=== PATIENT | female | born 1955 | race Asian ===

== ENCOUNTER 2018-03-01 08:58 | Day surgery (SDC) | payer BC ==
[~2018-03-01 08:58] MED LIST: CEFAZOLIN 1 GM INJ; CEFAZOLIN 2 GM/50 ML (PMX) 50 ML IVPB; SOD CHLORIDE 0.9% 1,000 ML IV
[2018-03-01 10:22] LABS: ADD MAN DIFF? NO
[2018-03-01 10:26] LABS: BASOPHILS % 0.7 % (0.0-2.0); EOSINOPHILS # 0.7 10^3/ul (0.0-0.5); EOSINOPHILS % 15.6 % (0.0-7.0); HEMATOCRIT 32.1 % (37.0-47.0); HEMOGLOBIN 10.6 g/dl (12.0-16.0); LYMPHOCYTES # 1.1 10^3/ul (0.8-2.9); LYMPHOCYTES % 25.1 % (15.0-51.0); MEAN PLATELET VOLUME 9.5 fl (7.4-10.4); MONOCYTE # 0.7 10^3/ul (0.3-0.9); MONOCYTES % 15.4 % (0.0-11.0); NEUTROPHIL # 1.8 10^3/ul (1.6-7.5); PLATELET COUNT 159 10^3/UL (140-415); RED BLOOD COUNT 3.31 10^6/ul (4.20-5.40); RED CELL DISTRIBUTION WIDTH 15.7 % (11.5-14.5)
[2018-03-01 10:26] LABS: WHITE BLOOD COUNT 4.2 10^3/ul (4.8-10.8)
[2018-03-01 10:38] LABS: HOLD TRANSMISSIONS 1
[2018-03-01 10:43] LABS: INR 0.96; PROTIME 12.9 Sec (11.9-14.9)
[2018-03-01 10:46] LABS: ANION GAP 16 (8-16); CARBON DIOXIDE 26 mmol/L (21-31); CHLORIDE 105 mmol/L (97-110); GLUCOSE 93 mg/dl (70-220)
[2018-03-01 10:48] LABS: PARTIAL THROMBOPLASTIN TIME 24.7 Sec (25.0-35.0)
[2018-03-01 10:51] LABS: BLOOD UREA NITROGEN 17 mg/dl (7-20); CALCIUM 9.2 mg/dl (8.4-10.2); CREATININE 0.57 mg/dl (0.44-1.00); POTASSIUM 4.7 mmol/L (3.5-5.1); SODIUM 142 mmol/L (135-144)
[2018-03-01] MEDS ORDERED: ROCURONIUM 50 MG INJ (11:44)
[2018-03-01] MEDS ORDERED: LIDOCAINE 2% (SDV) 5 ML INJ (11:44)
[2018-03-01] MEDS ORDERED: PROPOFOL 20 ML (11:44)
[2018-03-01] MEDS ORDERED: DEXAMETHASONE 4 MG/ML 1 ML INJ (11:45)
[2018-03-01] MEDS ORDERED: MIDAZOLAM 1 MG/ML 2 ML INJ (11:45)
[2018-03-01] MEDS ORDERED: NEOSTIGMINE 3 MG/3 ML SYRINGE (11:45)
[2018-03-01] MEDS ORDERED: FENTAnyl 50 MCG/ML VIAL (11:45)
[2018-03-01] MEDS ORDERED: ONDANSETRON 4 MG INJ (11:45)
[2018-03-01] MEDS ORDERED: GLYCOPYRROLATE 0.4 MG INJ (11:45)
[2018-03-01] MEDS ORDERED: SUCCINYLCHOLINE CHLORIDE 100 MG/5 ML SYG IV (12:38)
[2018-03-01] MEDS ORDERED: NALOXONE (0.4 MG/ML) INJ IV (13:30)
[2018-03-01] MEDS ORDERED: HYDROmorphONE 1 MG/5 ML IV SYRINGE IV (13:38)
[2018-03-01] MEDS: HYDROmorphONE 0.5 MG/0.5 ML SYG IV (13:50)
[2018-03-01] MEDS ORDERED: HYDROmorphONE 0.5 MG/0.5 ML SYG IV (14:00)
[2018-03-01] MEDS: HYDROCODONE/APAP (5/325) TAB PO (14:44)
== END 2018-03-01 15:05 | disposition home or self-care (01) ==
LOC: SDS 08:58
DX: C34.90 Malignant neoplasm of unspecified part of unspecified bronchus or lung (principal); R59.0 Localized enlarged lymph nodes; D64.9 Anemia, unspecified; R94.31 Abnormal electrocardiogram [ECG] [EKG]
CPT/HCPCS: 38525; 71045; 80048; 85025; 85610; 85730; 88307; 93005